=== PATIENT | female | born 1960 | race Caucasian/White ===

== ENCOUNTER 2016-08-14 16:05 | Emergency (ER) | payer OTHER ==
[~2016-08-14] VITALS: Ht 160 cm; Wt 181.8 kg
[2016-08-14 17:24] LABS: TROP-I INTERPRETATION NEGATIVE; TROPONIN-I 0.02 ng/mL (0.0-0.30)
[2016-08-14 17:27] LABS: HEMATOCRIT 47.4 % (36.0-46.0); MCH 31.7 PG (29.0-34.0); MCHC 31.2 G/DL (30.0-36.0); MCV 101.5 FL (83-99); MEAN PLAT.VOLUME 11.6 uM^3 (9.5-12.4); PLATELET COUNT 144 K/uL (156-360); RBC DIS.WIDTH-CV 15.7 % (11.8-14.6); RBC DIS.WIDTH-SD 59.8 % (39-53); RED BLOOD COUNT 4.67 M/uL (3.80-5.20); WHITE BLOOD COUNT 6.1 K/uL (4.1-10.2)
[2016-08-14 17:33] LABS: D-DIMER ELISA 0.71 mg/L FEU (< 0.57)
[2016-08-14 17:36] LABS: CHLORIDE 107 mEq/L (99-109); POTASSIUM 4.1 mEq/L (3.7-5.4); SODIUM 146 mEq/L (136-147)
[2016-08-14 17:38] LABS: GLUCOSE 100 mg/dL (70-99)
[2016-08-14 17:39] LABS: ANION GAP 12 MEQ/L (2-14)
[2016-08-14 17:42] LABS: GFR ESTIMATE (CALCULATED) 54 mL/min/; UREA NITROGEN (BUN) 15 mg/dL (9-23)
[2016-08-14 22:19] VITALS: BP 203/110
== END 2016-08-14 22:19 | disposition left against medical advice (07) ==
LOC: EME 16:05
PROVIDERS: Emergency Medicine; Nurse Practitioner Family
DX: I26.99 Other pulmonary embolism without acute cor pulmonale (principal); R09.02 Hypoxemia; I10 Essential (primary) hypertension; E11.9 Type 2 diabetes mellitus without complications
CPT/HCPCS: 71275; 80048 91; 84484; 85027; 85379; 93005; 99281; 99285

== ENCOUNTER 2016-09-09 15:17 | Inpatient (IN) | payer OTHER ==
[~2016-09-09] VITALS: Ht 160 cm; Wt 80.0 kg
[2016-09-09 15:49] LABS: HEMATOCRIT 47.5 % (36.0-46.0); MCH 30.7 PG (29.0-34.0); MCHC 30.5 G/DL (30.0-36.0); MCV 100.4 FL (83-99); MEAN PLAT.VOLUME 11.3 uM^3 (9.5-12.4); PLATELET COUNT 144 K/uL (156-360); RBC DIS.WIDTH-CV 15.3 % (11.8-14.6); RBC DIS.WIDTH-SD 56.9 % (39-53); RED BLOOD COUNT 4.73 M/uL (3.80-5.20); WHITE BLOOD COUNT 6.7 K/uL (4.1-10.2)
[2016-09-09 15:57] LABS: CHLORIDE 104 mEq/L (99-109); PTT 32.7 SEC (25-37)
[2016-09-09 15:58] LABS: POTASSIUM 4.8 mEq/L (3.7-5.4); SODIUM 143 mEq/L (136-147)
[2016-09-09 15:59] LABS: GLUCOSE 74 mg/dL (70-99)
[2016-09-09 16:00] LABS: INTER. NORMALIZED RATIO 1.4; PROTHROMBIN TIME 15.8 SEC (10.2-12.9)
[2016-09-09 16:01] LABS: ANION GAP 10 MEQ/L (2-14)
[2016-09-09 16:03] LABS: GFR ESTIMATE (CALCULATED) 38 mL/min/
[2016-09-09 16:04] LABS: UREA NITROGEN (BUN) 20 mg/dL (9-23)
[2016-09-09] MEDS ORDERED: METFORMIN HCL1000 MG PO (17:28)
[2016-09-09] MEDS ORDERED: GLIPIZIDE10 MG PO (17:28)
[2016-09-09] MEDS ORDERED: LOSARTAN POTAS100 MG PO (17:29)
[2016-09-09] MEDS ORDERED: LOSARTAN POTASS50 MG PO (17:30)
[2016-09-09] MEDS ORDERED: LASIX40 MG PO (17:31)
[2016-09-09] MEDS ORDERED: METOPROLOL SUC200 MG PO (17:31)
[2016-09-09] MEDS ORDERED: HYDROCODON-ACE1 EAC7 PO (17:32)
[2016-09-09] MEDS ORDERED: WARFARIN SODIUM5 MG PO (17:34)
[2016-09-09] MEDS ORDERED: WARFARIN SODIUM10 MG PO (17:34)
[2016-09-09 20:22] LABS: SERUM ETHYL ALCOHOL < 10 mg/dL
[2016-09-09] MEDS ORDERED: DAILY VITE1 EAC1 PO (21:01)
[2016-09-09] MEDS ORDERED: ALDACTONE25 MG PO (21:01)
[2016-09-09 23:23] LABS: POINT-OF-CARE METER ID UU14174216
[2016-09-10 00:19] VITALS: BP 188/92; BP 232/102
[2016-09-10 00:44] LABS: POINT-OF-CARE METER ID UU13113781
[2016-09-10 03:05] VITALS: BP 158/76
[2016-09-10 04:36] LABS: INTER. NORMALIZED RATIO 1.5; PROTHROMBIN TIME 16.4 SEC (10.2-12.9)
[2016-09-10 04:40] LABS: PTT 73.5 SEC (25-37)
[2016-09-10 04:56] LABS: CHLORIDE 104 mEq/L (99-109); POTASSIUM 4.5 mEq/L (3.7-5.4); SODIUM 147 mEq/L (136-147)
[2016-09-10 04:57] LABS: MAGNESIUM 2.1 mg/dL (1.3-2.7)
[2016-09-10 04:59] LABS: ANION GAP 10 MEQ/L (2-14); GLUCOSE 95 mg/dL (70-99)
[2016-09-10 05:02] LABS: GFR ESTIMATE (CALCULATED) 38 mL/min/
[2016-09-10 05:03] LABS: UREA NITROGEN (BUN) 23 mg/dL (9-23)
[2016-09-10 06:51] LABS: Estimated Average Glucose 131 mg/dL (70-123); HEMOGLOBIN A1c (GLYCOHEMOGLOB) 6.2 % HGB (Below 5.7)
[2016-09-10 07:55] VITALS: BP 124/70
[2016-09-10 08:15] LABS: POINT-OF-CARE METER ID UU14174216; POINT-OF-CARE USER ID ENVKC36
[2016-09-10 11:35] LABS: POINT-OF-CARE METER ID UU14174216; POINT-OF-CARE USER ID ENVKC36
[2016-09-10 16:32] VITALS: BP 142/88
[2016-09-10 16:51] LABS: POINT-OF-CARE METER ID UU14174216; POINT-OF-CARE USER ID ENVKC36
[2016-09-10 20:22] VITALS: BP 142/85
[2016-09-10 23:28] VITALS: BP 147/77
[2016-09-11 00:49] LABS: ADD MIUA? NO; BILIRUBIN NEGATIVE; BLOOD NEGATIVE; COLOR STRAW ((YELLOW)); GLUCOSE (STRIP) NEGATIVE; KETONES NEGATIVE; LEUKOCYTES NEGATIVE; NITRITE NEGATIVE; PROTEIN (STRIP) NEGATIVE; SPECIFIC GRAVITY 1.005 (1.000-1.030); UCUL ADDED? NO; UROBILINOGEN 0.2 MG/DL (0.2-1.0)
[2016-09-11 04:33] LABS: AMPHETAMINE NEGATIVE (500 ng/mL); BARBITURATES NEGATIVE (200 ng/mL); BENZODIAZEPINES NEGATIVE (150 ng/mL); COCAINE NEGATIVE (150 ng/mL); INTERNAL CONTROLS VALID? YES; METHADONE NEGATIVE (200 ng/mL); METHAMPHETAMINE NEGATIVE (500 ng/mL); OPIATES (MORPHINE) PRESUMPTIVE POSITIVE (100 ng/mL); OXYCODONE NEGATIVE (100 ng/mL); PHENCYCLIDINE NEGATIVE (25 ng/mL); PROPOXYPHENE NEGATIVE (300 ng/mL); THC CANNABINOIDS NEGATIVE (50 ng/mL); TRICYCLIC ANTIDEPRESSANTS NEGATIVE (300 ng/mL)
[2016-09-11 04:34] LABS: ADD MEDTOX COMMENT Y
[2016-09-11 04:58] VITALS: BP 136/73
[2016-09-11 05:10] LABS: OPIATES QUANTITATIVE VALUE 0 NG/ML
[2016-09-11 05:36] LABS: HEMATOCRIT 41.4 % (36.0-46.0); INTER. NORMALIZED RATIO 1.5; MCH 32.1 PG (29.0-34.0); MCHC 31.6 G/DL (30.0-36.0); MCV 101.5 FL (83-99); MEAN PLAT.VOLUME 11.6 uM^3 (9.5-12.4); PLATELET COUNT 129 K/uL (156-360); PROTHROMBIN TIME 16.3 SEC (10.2-12.9); RBC DIS.WIDTH-CV 15.5 % (11.8-14.6); RBC DIS.WIDTH-SD 57.5 % (39-53); RED BLOOD COUNT 4.08 M/uL (3.80-5.20); WHITE BLOOD COUNT 6.1 K/uL (4.1-10.2)
[2016-09-11 05:39] LABS: PTT 103.2 SEC (25-37)
[2016-09-11 05:59] LABS: ANION GAP 9 MEQ/L (2-14); CHLORIDE 101 MEQ/L (99-109); GFR ESTIMATE (CALCULATED) 41 mL/min/; GLUCOSE 110 mg/dL (70-99); POTASSIUM 4.2 MEQ/L (3.7-5.4); SAMPLE HEMOLYSIS CHECK 0; SAMPLE ICTERIC CHECK 0; SAMPLE LIPEMIA CHECK 0; SODIUM 144 MEQ/L (136-147); UREA NITROGEN (BUN) 22 mg/dL (9-23)
[2016-09-11 07:35] LABS: POINT-OF-CARE METER ID UU13113781
[2016-09-11 08:15] VITALS: BP 110/70
[2016-09-11 10:20] LABS: BASE EXCESS 9.6 mEq/L (-3 to +3); BICARBONATE 36.9 mEq/L (22-26); CARBOXY HGB 3.1 % (0-5); COMMENTS - BLOOD GASES A+C+; DEVICE NC; METHEMOGLOBIN 1.7 % (0-1.5); O2 FLOW 2 L/MIN; PCO2 61 mm Hg (35-45); PO2 56 mm Hg (80-100); SITE LR; TOTAL RESP RATE 18 resp/min; pH 7.39 (7.35-7.45)
[2016-09-11 11:19] LABS: POINT-OF-CARE METER ID UU13113781
[2016-09-11 11:53] VITALS: BP 100/64
[2016-09-11 16:04] VITALS: BP 118/80
[2016-09-11 16:25] LABS: POINT-OF-CARE METER ID UU14174216
[2016-09-11 20:29] VITALS: BP 168/77
[2016-09-12 00:06] VITALS: BP 138/66
[2016-09-12 04:42] VITALS: BP 137/63
[2016-09-12 07:13] VITALS: BP 138/64
[2016-09-12 07:40] LABS: POINT-OF-CARE METER ID UU14174216
[2016-09-12 08:33] LABS: PTT 45.5 SEC (25-37)
[2016-09-12 08:54] LABS: INTER. NORMALIZED RATIO 1.4; PROTHROMBIN TIME 15.6 SEC (10.2-12.9)
[2016-09-12 09:16] LABS: ANION GAP 6 MEQ/L (2-14); CHLORIDE 99 MEQ/L (99-109); GFR ESTIMATE (CALCULATED) 41 mL/min/; GLUCOSE 106 mg/dL (70-99); POTASSIUM 4.2 MEQ/L (3.7-5.4); SAMPLE HEMOLYSIS CHECK 0; SAMPLE ICTERIC CHECK 0; SAMPLE LIPEMIA CHECK 0; SODIUM 144 MEQ/L (136-147); UREA NITROGEN (BUN) 23 mg/dL (9-23)
[2016-09-12 11:16] LABS: POINT-OF-CARE METER ID UU14174216
[2016-09-12 11:29] VITALS: BP 135/63
[2016-09-12 14:16] LABS: INTER. NORMALIZED RATIO 1.5; PROTHROMBIN TIME 17.1 SEC (10.2-12.9)
[2016-09-12 14:22] LABS: PTT 75.9 SEC (25-37)
[2016-09-12 14:52] VITALS: BP 139/68
[2016-09-12 16:38] LABS: POINT-OF-CARE METER ID UU14174216
[2016-09-12 19:33] VITALS: BP 134/66
[2016-09-12 20:05] LABS: INTER. NORMALIZED RATIO 1.6; PROTHROMBIN TIME 17.8 SEC (10.2-12.9)
[2016-09-12 20:08] LABS: PTT 72.9 SEC (25-37)
[2016-09-12 21:28] LABS: POINT-OF-CARE METER ID UU14174216
[2016-09-13] VITALS (7 sets, daily range): BP systolic 130–175; BP diastolic 62–86
[2016-09-13 06:00] LABS: INTER. NORMALIZED RATIO 1.7; PROTHROMBIN TIME 18.5 SEC (10.2-12.9)
[2016-09-13 06:03] LABS: PTT 68.9 SEC (25-37)
[2016-09-13 06:22] LABS: ANION GAP 9 MEQ/L (2-14); CHLORIDE 97 MEQ/L (99-109); GFR ESTIMATE (CALCULATED) 45 mL/min/; GLUCOSE 123 mg/dL (70-99); POTASSIUM 3.5 MEQ/L (3.7-5.4); SAMPLE HEMOLYSIS CHECK 0; SAMPLE ICTERIC CHECK 0; SAMPLE LIPEMIA CHECK 0; SODIUM 144 MEQ/L (136-147); UREA NITROGEN (BUN) 26 mg/dL (9-23)
[2016-09-13 07:36] LABS: POINT-OF-CARE METER ID UU13113698
[2016-09-13 11:31] LABS: POINT-OF-CARE METER ID UU13113698
[2016-09-13 13:06] LABS: HEMATOCRIT 41.8 % (36.0-46.0); MCH 31.7 PG (29.0-34.0); MCHC 31.8 G/DL (30.0-36.0); MCV 99.5 FL (83-99); MEAN PLAT.VOLUME 11.6 uM^3 (9.5-12.4); PLATELET COUNT 149 K/uL (156-360); RBC DIS.WIDTH-CV 15.6 % (11.8-14.6); RBC DIS.WIDTH-SD 56.3 % (39-53); WHITE BLOOD COUNT 6.6 K/uL (4.1-10.2)
[2016-09-13 16:13] LABS: POINT-OF-CARE METER ID UU13113698
[2016-09-13 21:06] LABS: POINT-OF-CARE METER ID UU13113698
[2016-09-14 04:06] VITALS: BP 150/68
[2016-09-14 06:12] LABS: MCH 30.6 PG (29.0-34.0); MCV 98.8 FL (83-99); MEAN PLAT.VOLUME 11.9 uM^3 (9.5-12.4); PLATELET COUNT 145 K/uL (156-360); RBC DIS.WIDTH-CV 15.4 % (11.8-14.6); RBC DIS.WIDTH-SD 56.4 % (39-53); RED BLOOD COUNT 4.25 M/uL (3.80-5.20); WHITE BLOOD COUNT 6.7 K/uL (4.1-10.2)
[2016-09-14 06:30] LABS: INTER. NORMALIZED RATIO 1.7
[2016-09-14 06:33] LABS: PTT 77.1 SEC (25-37)
[2016-09-14 07:51] LABS: POINT-OF-CARE METER ID UU13113781
[2016-09-14 08:13] VITALS: BP 126/90
[2016-09-14 11:37] VITALS: BP 160/86
[2016-09-14 11:49] LABS: POINT-OF-CARE METER ID UU13113781
[2016-09-14 16:23] LABS: POINT-OF-CARE METER ID UU13113698
[2016-09-14 17:06] VITALS: BP 170/88
[2016-09-14 19:30] VITALS: BP 148/79
[2016-09-14 21:28] LABS: POINT-OF-CARE METER ID UU13113698
[2016-09-15 00:15] VITALS: BP 169/81
[2016-09-15 04:15] VITALS: BP 135/61
[2016-09-15 06:42] LABS: PROTHROMBIN TIME 22.4 SEC (10.2-12.9)
[2016-09-15 07:28] VITALS: BP 130/63
[2016-09-15 09:28] LABS: ANION GAP 11 MEQ/L (2-14); CHLORIDE 93 MEQ/L (99-109); GFR ESTIMATE (CALCULATED) 49 mL/min/; GLUCOSE 132 mg/dL (70-99); POTASSIUM 3.9 MEQ/L (3.7-5.4); SAMPLE HEMOLYSIS CHECK 0; SAMPLE ICTERIC CHECK 0; SAMPLE LIPEMIA CHECK 0; SODIUM 142 MEQ/L (136-147); UREA NITROGEN (BUN) 26 mg/dL (9-23)
[2016-09-15 11:41] VITALS: BP 141/70
[2016-09-15 11:52] LABS: POINT-OF-CARE METER ID UU13113803
[2016-09-15 16:49] LABS: POINT-OF-CARE METER ID UU13113803
[2016-09-15 16:56] VITALS: BP 184/89
[2016-09-15 19:30] VITALS: BP 142/75
[2016-09-16 00:10] VITALS: BP 150/80; BP 190/106
[2016-09-16 04:10] VITALS: BP 148/76
[2016-09-16 07:36] LABS: POINT-OF-CARE METER ID UU13113781
[2016-09-16 07:54] VITALS: BP 156/73
[2016-09-16 10:27] LABS: MCH 31.5 PG (29.0-34.0); MCHC 31.5 G/DL (30.0-36.0); MEAN PLAT.VOLUME 11.8 uM^3 (9.5-12.4); PLATELET COUNT 116 K/uL (156-360); RBC DIS.WIDTH-CV 15.8 % (11.8-14.6); RBC DIS.WIDTH-SD 58.1 % (39-53); WHITE BLOOD COUNT 6.1 K/uL (4.1-10.2)
[2016-09-16 10:35] LABS: INTER. NORMALIZED RATIO 2.7; PROTHROMBIN TIME 30.7 SEC (10.2-12.9)
[2016-09-16 11:15] LABS: POINT-OF-CARE METER ID UU13113781
[2016-09-16] MEDS ORDERED: Zeasorb Antifungal T TP (12:11)
[2016-09-16] MEDS ORDERED: COUMADIN1 MG PO (12:11)
[2016-09-16] MEDS ORDERED: CEPHALEXIN500 MG PO (12:11)
[2016-09-16] MEDS ORDERED: HYDROCODON-ACE1 EAC7 PO (12:11)
[2016-09-16] MEDS ORDERED: METOPROLOL SUCC50 MG PO (12:11)
[2016-09-16] MEDS ORDERED: BUMETANIDE1 MG PO (12:11)
[2016-09-16] MEDS ORDERED: K-DUR20 MEQ PO (12:11)
[2016-09-16] MEDS ORDERED: DUONEB 2.5-0.5 M3 ML PEP (12:11)
[2016-09-16] MEDS ORDERED: METOLAZONE2.5 MG PO (12:11)
[2016-09-16] MEDS ORDERED: NOVOLOG PE100 UNITS/ SC (12:11)
[2016-09-16 14:00] VITALS: BP 173/81
== END 2016-09-16 15:20 | DRG 291 ==
LOC: EME 15:17 → EDOF 19:51 → ENRESERV 19:53 → CANRESERV 20:08 → 4EAST 20:48 → EDOF 20:48 → ENRESERV 21:07 → 4EAST 22:46
PROVIDERS: Emergency Medicine; Hospitalist; Internal Medicine; Internal Medicine Pulmonary Disease; Physician Assistant Medical
PROC: 5A09357 Assistance with Respiratory Ventilation, Less than 24 Consecutive Hours, Continuous Positive Airway Pressure (ICD-10-PCS; principal; 2016-09-11)
DX: I13.0 Hypertensive heart and chronic kidney disease with heart failure and stage 1 through stage 4 chronic kidney disease, or unspecified chronic kidney disease (principal); I16.0 Hypertensive urgency; I50.33 Acute on chronic diastolic (congestive) heart failure; E66.2 Morbid (severe) obesity with alveolar hypoventilation; G47.33 Obstructive sleep apnea (adult) (pediatric); E11.22 Type 2 diabetes mellitus with diabetic chronic kidney disease; N18.3 Chronic kidney disease, stage 3 (moderate); L03.116 Cellulitis of left lower limb; I27.2 Other secondary pulmonary hypertension; I27.81 Cor pulmonale (chronic); I89.0 Lymphedema, not elsewhere classified; J45.909 Unspecified asthma, uncomplicated; F40.240 Claustrophobia; M19.90 Unspecified osteoarthritis, unspecified site; R00.1 Bradycardia, unspecified; R29.6 Repeated falls; S40.011A Contusion of right shoulder, initial encounter; S83.92XA Sprain of unspecified site of left knee, initial encounter; S81.802A Unspecified open wound, left lower leg, initial encounter; W18.30XA Fall on same level, unspecified, initial encounter; Y92.002 Bathroom of unspecified non-institutional (private) residence as the place of occurrence of the external cause; Z68.45 Body mass index [BMI] 70 or greater, adult; Z79.01 Long term (current) use of anticoagulants; Z86.711 Personal history of pulmonary embolism; Z91.19 Patient's noncompliance with other medical treatment and regimen
CPT/HCPCS: 36600; 70450; 71010; 73030; 73564; 80048; 81003; 82803; 82948; 83036; 83735; 83880; 84999; 85027; 85610; 85730; 87040; 93005; 93306; 93970; 94640; 94799; 97530 GO; 97530 GP; 99202; 99281; 99285; G0480; J0360; J1815; J1940

== ENCOUNTER 2016-10-13 19:45 | Inpatient (IN) | payer OTHER ==
[~2016-10-13] VITALS: Ht 160 cm; Wt 140.2 kg
[~2016-10-13 19:45] MED LIST: ALDACTONE25 MG PO; BUMETANIDE1 MG PO; CEPHALEXIN500 MG PO; COUMADIN1 MG PO; DAILY VITE1 EAC1 PO; DUONEB 2.5-0.5 M3 ML PEP; GLIPIZIDE10 MG PO; HYDROCODON-ACE1 EAC7 PO; K-DUR20 MEQ PO; LASIX40 MG PO; LOSARTAN POTAS100 MG PO; LOSARTAN POTASS50 MG PO; METFORMIN HCL1000 MG PO; METOLAZONE2.5 MG PO; METOPROLOL SUC200 MG PO; METOPROLOL SUCC50 MG PO; NOVOLOG PE100 UNITS/ SC; WARFARIN SODIUM10 MG PO; WARFARIN SODIUM5 MG PO; Zeasorb Antifungal T TP
[2016-10-13 20:07] LABS: POINT-OF-CARE METER ID UU13113778
[2016-10-13 20:23] LABS: HEMATOCRIT 35.1 % (36.0-46.0); MCH 31.9 PG (29.0-34.0); MCHC 34.2 G/DL (30.0-36.0); MCV 93.4 FL (83-99); RBC DIS.WIDTH-CV 14.6 % (11.8-14.6); RED BLOOD COUNT 3.76 M/uL (3.80-5.20); WHITE BLOOD COUNT 7.2 K/uL (4.1-10.2)
[2016-10-13 20:30] LABS: CHLORIDE 97 mEq/L (99-109); POTASSIUM 4.8 mEq/L (3.7-5.4); SODIUM 137 mEq/L (136-147)
[2016-10-13 20:34] LABS: ANION GAP 15 MEQ/L (2-14); GLUCOSE 80 mg/dL (70-99); TOTAL BILIRUBIN 0.6 mg/dL (0.0-1.0)
[2016-10-13 20:36] LABS: ALKALINE PHOSPHATASE 147 IU/L (3-129); GFR ESTIMATE (CALCULATED) 10 mL/min/
[2016-10-13 20:37] LABS: UREA NITROGEN (BUN) 79 mg/dL (9-23)
[2016-10-13 20:59] LABS: MEAN PLAT.VOLUME 11.1 uM^3 (9.5-12.4); PLAT.SUFFICIENCY ADEQUATE; PLATELET COUNT 203 K/uL (156-360)
[2016-10-13 21:10] LABS: POINT-OF-CARE METER ID UU13113702
[2016-10-13 21:30] LABS: ADD MIUA? YES; BILIRUBIN NEGATIVE; BLOOD NEGATIVE; COLOR YELLOW ((YELLOW)); GLUCOSE (STRIP) NEGATIVE; KETONES NEGATIVE; LEUKOCYTES NEGATIVE; NITRITE NEGATIVE; PROTEIN (STRIP) 30; SPECIFIC GRAVITY 1.014 (1.000-1.030); UROBILINOGEN 0.2 MG/DL (0.2-1.0)
[2016-10-13 21:40] LABS: MAGNESIUM 1.8 mg/dL (1.3-2.7)
[2016-10-13 21:40] LABS: BACTERIA RARE /HPF; EPITHELIAL CELLS 1+ /HPF; MUCUS TRACE /LPF; RED BLOOD CELLS 0-5 /HPF (0-5); UCUL ADDED? NO; WHITE BLOOD CELLS 0-5 /HPF (0-5)
[2016-10-13 22:45] LABS: POINT-OF-CARE METER ID UU13113702
[2016-10-13 23:27] LABS: PROTHROMBIN TIME 34.5 SEC (10.2-12.9)
[2016-10-13] MEDS ORDERED: TOPROL XL50 MG PO (23:30)
[2016-10-13] MEDS ORDERED: K-DUR20 MEQ PO (23:32)
[2016-10-13 23:35] VITALS: BP 155/82
[2016-10-13] MEDS ORDERED: COUMADIN10 MG PO (23:36)
[2016-10-13] MEDS ORDERED: ZEASORB POWDER71 GM TP (23:38)
[2016-10-13] MEDS ORDERED: AQUAPHOR OINTM105 GM TP (23:39)
[2016-10-14 00:13] VITALS: BP 133/62
[2016-10-14 01:18] LABS: POINT-OF-CARE METER ID UU14174225
[2016-10-14 06:04] LABS: HEMATOCRIT 34.7 % (36.0-46.0); MCH 31.1 PG (29.0-34.0); MCHC 32.6 G/DL (30.0-36.0); MCV 95.6 FL (83-99); MEAN PLAT.VOLUME 11.1 uM^3 (9.5-12.4); PLATELET COUNT 183 K/uL (156-360); RBC DIS.WIDTH-CV 14.7 % (11.8-14.6); RBC DIS.WIDTH-SD 51.8 % (39-53); RED BLOOD COUNT 3.63 M/uL (3.80-5.20); WHITE BLOOD COUNT 7.2 K/uL (4.1-10.2)
[2016-10-14 06:35] LABS: ALKALINE PHOSPHATASE 122 IU/L (3-129); ANION GAP 12 MEQ/L (2-14); CHLORIDE 101 MEQ/L (99-109); GFR ESTIMATE (CALCULATED) 11 mL/min/; GLUCOSE 146 mg/dL (70-99); POTASSIUM 4.6 MEQ/L (3.7-5.4); SAMPLE HEMOLYSIS CHECK 0; SAMPLE ICTERIC CHECK 0; SAMPLE LIPEMIA CHECK 0; SODIUM 140 MEQ/L (136-147); TOTAL BILIRUBIN 0.5 MG/DL (0.0-1.0); UREA NITROGEN (BUN) 73 mg/dL (9-23)
[2016-10-14 06:46] LABS: INTER. NORMALIZED RATIO 3.3; PROTHROMBIN TIME 38.3 SEC (10.2-12.9)
[2016-10-14 08:05] VITALS: BP 127/66
[2016-10-14 15:44] VITALS: BP 146/70
[2016-10-14] MEDS ORDERED: COUMADIN10 MG PO (15:45)
[2016-10-14 20:55] LABS: POINT-OF-CARE METER ID UU14174225
[2016-10-15 00:42] VITALS: BP 159/73
[2016-10-15 06:35] LABS: INTER. NORMALIZED RATIO 2.9; PROTHROMBIN TIME 33.3 SEC (10.2-12.9)
[2016-10-15 07:56] LABS: POINT-OF-CARE METER ID UU13113717
[2016-10-15 08:40] VITALS: BP 135/65
[2016-10-15 09:23] LABS: ANION GAP 10 MEQ/L (2-14); CHLORIDE 105 MEQ/L (99-109); POTASSIUM 4.6 MEQ/L (3.7-5.4); SAMPLE HEMOLYSIS CHECK 0; SAMPLE ICTERIC CHECK 0; SAMPLE LIPEMIA CHECK 0; SODIUM 140 MEQ/L (136-147)
[2016-10-15 09:28] LABS: GFR ESTIMATE (CALCULATED) 13 mL/min/; GLUCOSE 134 mg/dL (70-99); UREA NITROGEN (BUN) 69 mg/dL (9-23)
[2016-10-15 11:59] LABS: POINT-OF-CARE METER ID UU13113717
[2016-10-15 16:25] VITALS: BP 138/75
[2016-10-15 17:00] LABS: POINT-OF-CARE METER ID UU13113717
[2016-10-15 18:04] LABS: MAGNESIUM 1.8 mg/dl (1.3-2.7)
[2016-10-15 18:10] LABS: URIC ACID 12.3 mg/dL (3.1-9.2)
[2016-10-15 20:32] LABS: POINT-OF-CARE METER ID UU13113717
[2016-10-16 00:58] VITALS: BP 166/79
[2016-10-16 07:03] LABS: INTER. NORMALIZED RATIO 2.6; PROTHROMBIN TIME 29.4 SEC (10.2-12.9)
[2016-10-16 07:22] LABS: ANION GAP 11 MEQ/L (2-14); CHLORIDE 105 MEQ/L (99-109); GFR ESTIMATE (CALCULATED) 17 mL/min/; GLUCOSE 146 mg/dL (70-99); MAGNESIUM 1.9 mg/dl (1.3-2.7); POTASSIUM 4.8 MEQ/L (3.7-5.4); SAMPLE HEMOLYSIS CHECK 0; SAMPLE ICTERIC CHECK 0; SAMPLE LIPEMIA CHECK 0; SODIUM 141 MEQ/L (136-147); UREA NITROGEN (BUN) 61 mg/dL (9-23); URIC ACID 11.1 mg/dL (3.1-9.2)
[2016-10-16 07:24] VITALS: BP 162/81
[2016-10-16 21:27] LABS: POINT-OF-CARE METER ID UU13113717
[2016-10-16 23:52] VITALS: BP 154/80
[2016-10-17 06:20] LABS: ANION GAP 9 MEQ/L (2-14); CHLORIDE 106 MEQ/L (99-109); GFR ESTIMATE (CALCULATED) 20 mL/min/; GLUCOSE 135 mg/dL (70-99); POTASSIUM 4.5 MEQ/L (3.7-5.4); SAMPLE HEMOLYSIS CHECK 0; SAMPLE ICTERIC CHECK 0; SAMPLE LIPEMIA CHECK 0; SODIUM 139 MEQ/L (136-147); UREA NITROGEN (BUN) 58 mg/dL (9-23)
[2016-10-17 07:13] VITALS: BP 125/69
[2016-10-17 07:18] LABS: INTER. NORMALIZED RATIO 2.5; PROTHROMBIN TIME 28.7 SEC (10.2-12.9)
[2016-10-17] MEDS ORDERED: AMLODIPINE BESYL5 MG PO (09:16)
[2016-10-17] MEDS ORDERED: NOVOLOG PE100 UNITS/ SC (09:17)
[2016-10-17 11:14] LABS: POINT-OF-CARE METER ID UU13113717
[2016-10-17 15:25] VITALS: BP 101/52
== END 2016-10-17 16:02 | disposition home health service (06) | DRG 683 ==
LOC: EME 19:45 → EDOF 22:00 → 5SOUTH 22:00 → ENRESERV 22:02 → 5SOUTH 23:34
PROVIDERS: Emergency Medicine; Internal Medicine; Internal Medicine Cardiovascular Disease; Internal Medicine Nephrology; Nurse Practitioner Family
DX: N17.9 Acute kidney failure, unspecified (principal); I42.9 Cardiomyopathy, unspecified; E11.21 Type 2 diabetes mellitus with diabetic nephropathy; Z68.43 Body mass index [BMI] 50.0-59.9, adult; I13.0 Hypertensive heart and chronic kidney disease with heart failure and stage 1 through stage 4 chronic kidney disease, or unspecified chronic kidney disease; I50.32 Chronic diastolic (congestive) heart failure; Z86.711 Personal history of pulmonary embolism; E11.649 Type 2 diabetes mellitus with hypoglycemia without coma; Z79.01 Long term (current) use of anticoagulants; G47.33 Obstructive sleep apnea (adult) (pediatric); I89.0 Lymphedema, not elsewhere classified; I27.81 Cor pulmonale (chronic); N18.3 Chronic kidney disease, stage 3 (moderate); T50.2X5A Adverse effect of carbonic-anhydrase inhibitors, benzothiadiazides and other diuretics, initial encounter; Z79.84 Long term (current) use of oral hypoglycemic drugs; I08.3 Combined rheumatic disorders of mitral, aortic and tricuspid valves; E11.42 Type 2 diabetes mellitus with diabetic polyneuropathy; E66.2 Morbid (severe) obesity with alveolar hypoventilation; Z82.49 Family history of ischemic heart disease and other diseases of the circulatory system; Z83.3 Family history of diabetes mellitus; Z86.718 Personal history of other venous thrombosis and embolism; I25.10 Atherosclerotic heart disease of native coronary artery without angina pectoris; I27.2 Other secondary pulmonary hypertension; E11.22 Type 2 diabetes mellitus with diabetic chronic kidney disease; Z80.51 Family history of malignant neoplasm of kidney; Z80.0 Family history of malignant neoplasm of digestive organs; Z80.49 Family history of malignant neoplasm of other genital organs; Z79.899 Other long term (current) drug therapy; E86.9 Volume depletion, unspecified; E78.5 Hyperlipidemia, unspecified; K21.9 Gastro-esophageal reflux disease without esophagitis; M19.90 Unspecified osteoarthritis, unspecified site; R25.2 Cramp and spasm
CPT/HCPCS: 76770; 80048; 80053; 80069; 81003; 82948; 83036; 83735; 83880; 84100; 84550; 85025; 85027; 85610; 94799; 99202; 99281; 99285; J1815; J2060; J7030; J7042

== ENCOUNTER 2017-03-09 13:27 | Inpatient (IN) | payer OTHER ==
[~2017-03-09] VITALS: Ht 160 cm; Wt 142.0 kg
[~2017-03-09 13:27] MED LIST changes: +AMLODIPINE BESYL5 MG PO; +AQUAPHOR OINTM105 GM TP; +COUMADIN10 MG PO; +TOPROL XL50 MG PO; +ZEASORB POWDER71 GM TP
[2017-03-09 14:53] LABS: HEMATOCRIT 43.1 % (36.0-46.0); HEMOGLOBIN 13.4 G/DL (11.9-15.5); MCH 28.8 PG (29.0-34.0); MCHC 31.1 G/DL (30.0-36.0); MCV 92.5 FL (83-99); PLATELET COUNT 211 K/uL (156-360); RBC DIS.WIDTH-CV 16.4 % (11.8-14.6); RBC DIS.WIDTH-SD 55.7 % (39-53); RED BLOOD COUNT 4.66 M/uL (3.80-5.20); WHITE BLOOD COUNT 6.2 K/uL (4.1-10.2)
[2017-03-09 15:04] LABS: CHLORIDE 102 mEq/L (99-109); SODIUM 141 mEq/L (136-147)
[2017-03-09 15:06] LABS: GLUCOSE 154 mg/dL (70-99)
[2017-03-09 15:10] LABS: CREATININE 1.2 mg/dL (0.6-1.3); GFR ESTIMATE (CALCULATED) 49 mL/min/; UREA NITROGEN (BUN) 23 mg/dL (9-23)
[2017-03-09 15:18] LABS: TROP-I INTERPRETATION NEGATIVE; TROPONIN-I 0.02 ng/mL (0.0-0.30)
[2017-03-09] MEDS ORDERED: WARFARIN SODIUM10 MG PO (16:27)
[2017-03-09] MEDS ORDERED: HYDROCODON-ACE1 EAC7 PO (16:28)
[2017-03-09] MEDS ORDERED: STOOL SOFTENER100 MG PO (16:28)
[2017-03-09] MEDS ORDERED: BUMETANIDE1 MG PO (16:29)
[2017-03-09] MEDS ORDERED: COZAAR50 MG PO (16:29)
[2017-03-09] MEDS ORDERED: BIOTIN2500 MCG PO (16:30)
[2017-03-09] MEDS ORDERED: METOPROLOL SUCC50 MG PO (16:30)
[2017-03-09] MEDS ORDERED: MAGNESIUM400 M1 PO (16:30)
[2017-03-09 16:55] LABS: D-DIMER ELISA < 150.00 ng/mLDDU (<230)
[2017-03-09 16:59] LABS: PTT 32.3 SEC (25-37)
[2017-03-09 17:39] LABS: CREATINE KINASE 35 IU/L (1-294)
[2017-03-09 19:01] LABS: C-REACTIVE PROTEIN 12.8 MG/L (0-10)
[2017-03-09 23:40] VITALS: BP 186/87
[2017-03-10 03:54] VITALS: BP 193/88
[2017-03-10 06:58] LABS: HEMATOCRIT 42.1 % (36.0-46.0); MCH 28.3 PG (29.0-34.0); MCHC 30.9 G/DL (30.0-36.0); MCV 91.5 FL (83-99); PLATELET COUNT 226 K/uL (156-360); RBC DIS.WIDTH-CV 16.3 % (11.8-14.6); RBC DIS.WIDTH-SD 54.6 % (39-53); WHITE BLOOD COUNT 7.3 K/uL (4.1-10.2)
[2017-03-10 07:15] LABS: CHLORIDE 94 MEQ/L (99-109); CREATININE 1.2 MG/DL (0.6-1.3); GFR ESTIMATE (CALCULATED) 49 mL/min/; GLUCOSE 189 mg/dL (70-99); POTASSIUM 3.8 MEQ/L (3.7-5.4); SODIUM 141 MEQ/L (136-147); UREA NITROGEN (BUN) 23 mg/dL (9-23)
[2017-03-10 07:55] VITALS: BP 147/84
[2017-03-10 12:33] LABS: HEMOGLOBIN A1c (GLYCOHEMOGLOB) 7.6 % (Below 5.7)
[2017-03-10 16:31] VITALS: BP 135/69
[2017-03-10 23:44] VITALS: BP 131/67
[2017-03-11 06:36] LABS: CHLORIDE 95 MEQ/L (99-109); GFR ESTIMATE (CALCULATED) 33 mL/min/; GLUCOSE 181 mg/dL (70-99); POTASSIUM 3.7 MEQ/L (3.7-5.4); SODIUM 140 MEQ/L (136-147)
[2017-03-11 06:37] LABS: CREATININE 1.7 MG/DL (0.6-1.3); UREA NITROGEN (BUN) 36 mg/dL (9-23)
[2017-03-11 06:51] LABS: INTER. NORMALIZED RATIO 2.2
[2017-03-11 07:27] VITALS: BP 130/70
[2017-03-11 15:08] VITALS: BP 103/58
[2017-03-11 15:11] LABS: PHOSPHORUS 6.1 mg/dL (2.5-4.9)
[2017-03-11 23:30] VITALS: BP 100/60
[2017-03-12 05:27] LABS: INTER. NORMALIZED RATIO 2.6
[2017-03-12 05:59] LABS: CHLORIDE 94 MEQ/L (99-109); CREATININE 1.9 MG/DL (0.6-1.3); GFR ESTIMATE (CALCULATED) 29 mL/min/; GLUCOSE 170 mg/dL (70-99); POTASSIUM 3.8 MEQ/L (3.7-5.4); SODIUM 138 MEQ/L (136-147); UREA NITROGEN (BUN) 49 mg/dL (9-23)
[2017-03-12 07:30] VITALS: BP 141/75
[2017-03-12] MEDS ORDERED: CARVEDILOL6.25 MG PO (13:13)
[2017-03-12] MEDS ORDERED: COUMADIN1 MG PO (13:16)
[2017-03-12] MEDS ORDERED: HYDROCODON-ACE1 EAC7 PO (13:16)
[2017-03-12] MEDS ORDERED: DUONEB 2.5-0.5 M3 ML AEROSOL (13:32)
== END 2017-03-12 15:42 | disposition home health service (06) | DRG 314 ==
LOC: EME 13:27 → EDOF 17:44 → 5SOUTH 17:44 → ENRESERV 17:46 → 5SOUTH 22:47
PROVIDERS: Internal Medicine; Internal Medicine Nephrology; Physician Assistant Medical
DX: I27.81 Cor pulmonale (chronic) (principal); N17.9 Acute kidney failure, unspecified; I13.0 Hypertensive heart and chronic kidney disease with heart failure and stage 1 through stage 4 chronic kidney disease, or unspecified chronic kidney disease; I50.33 Acute on chronic diastolic (congestive) heart failure; N18.2 Chronic kidney disease, stage 2 (mild); R09.02 Hypoxemia; E11.21 Type 2 diabetes mellitus with diabetic nephropathy; E11.22 Type 2 diabetes mellitus with diabetic chronic kidney disease; E66.2 Morbid (severe) obesity with alveolar hypoventilation; Z68.43 Body mass index [BMI] 50.0-59.9, adult; E78.5 Hyperlipidemia, unspecified; G89.29 Other chronic pain; I89.0 Lymphedema, not elsewhere classified; I07.1 Rheumatic tricuspid insufficiency; I27.20 Pulmonary hypertension, unspecified; I42.9 Cardiomyopathy, unspecified; K21.9 Gastro-esophageal reflux disease without esophagitis; M17.0 Bilateral primary osteoarthritis of knee; Z79.01 Long term (current) use of anticoagulants; Z80.0 Family history of malignant neoplasm of digestive organs; Z80.49 Family history of malignant neoplasm of other genital organs; Z80.51 Family history of malignant neoplasm of kidney; Z82.49 Family history of ischemic heart disease and other diseases of the circulatory system; Z83.3 Family history of diabetes mellitus; Z86.711 Personal history of pulmonary embolism; D64.9 Anemia, unspecified; E55.9 Vitamin D deficiency, unspecified; F41.9 Anxiety disorder, unspecified; L71.9 Rosacea, unspecified; M79.89 Other specified soft tissue disorders; M79.1 Myalgia
CPT/HCPCS: 71046; 73700; 80048; 82040; 82550; 82570; 82948; 83036; 83605; 83880; 84100; 84156; 84484; 85027; 85379; 85610; 85651; 85730; 86140; 87040; 93005; 93970; 94760; 94799; 99202; 99281; 99285; J0690; J1815; J1940; J3010

== ENCOUNTER 2017-03-28 14:53 | Emergency (ER) | payer OTHER ==
[~2017-03-28] VITALS: Ht 160 cm; Wt 138.6 kg
[~2017-03-28 14:53] MED LIST changes: +BIOTIN2500 MCG PO; +CARVEDILOL6.25 MG PO; +COZAAR50 MG PO; +DUONEB 2.5-0.5 M3 ML AEROSOL; +MAGNESIUM400 M1 PO; +STOOL SOFTENER100 MG PO
[2017-03-28 15:48] LABS: HEMOGLOBIN 13.6 G/DL (11.9-15.5); MCH 29.6 PG (29.0-34.0); MCHC 32.4 G/DL (30.0-36.0); MCV 91.5 FL (83-99); PLATELET COUNT 219 K/uL (156-360); RBC DIS.WIDTH-CV 16.4 % (11.8-14.6); RED BLOOD COUNT 4.59 M/uL (3.80-5.20); WHITE BLOOD COUNT 6.4 K/uL (4.1-10.2)
[2017-03-28 16:00] LABS: CHLORIDE 100 mEq/L (99-109); POTASSIUM 4.1 mEq/L (3.7-5.4); SODIUM 142 mEq/L (136-147)
[2017-03-28 16:01] LABS: GLUCOSE 137 mg/dL (70-99)
[2017-03-28 16:05] LABS: CREATININE 1.2 mg/dL (0.6-1.3); GFR ESTIMATE (CALCULATED) 49 mL/min/
[2017-03-28 16:06] LABS: UREA NITROGEN (BUN) 35 mg/dL (9-23)
[2017-03-28] MEDS ORDERED: PERCOCET 10/1 TABLET PO (17:42)
[2017-03-28 18:01] VITALS: BP 155/75
== END 2017-03-28 18:22 | disposition home or self-care (01) ==
LOC: EME 14:53
DX: L97.219 Non-pressure chronic ulcer of right calf with unspecified severity (principal); I89.0 Lymphedema, not elsewhere classified; I11.0 Hypertensive heart disease with heart failure; I50.9 Heart failure, unspecified; E11.9 Type 2 diabetes mellitus without complications; E66.01 Morbid (severe) obesity due to excess calories
CPT/HCPCS: 80048; 85027; 99281; 99284

== ENCOUNTER 2017-06-09 20:17 | Inpatient (IN) | payer OTHER ==
[~2017-06-09] VITALS: Ht 160 cm; Wt 142.3 kg
[~2017-06-09 20:17] MED LIST changes: +PERCOCET 10/1 TABLET PO
[2017-06-09 21:02] LABS: BASOPHIL (%) 0.3 % (0-1); EOSINOPHIL (%) 1.6 % (0-5); EOSINOPHIL COUNT 0.2 K/uL (0-0.3); HEMOGLOBIN 14.2 G/DL (11.9-15.5); IMMATURE GRANULOCYTE (%) 0.4 % (0.0-0.7); LYMPHOCYTE (%) 7.2 % (15-42); LYMPHOCYTE COUNT 0.7 K/uL (1.0-2.8); MCH 30.9 PG (29.0-34.0); MCHC 33.8 G/DL (30.0-36.0); MCV 91.5 FL (83-99); MONOCYTE (%) 8.9 % (3-12); MONOCYTE COUNT 0.9 K/uL (0-0.8); NEUTROPHIL (%) 81.6 % (45-76); NEUTROPHIL COUNT 8.3 K/uL (1.8-6.4); PLATELET COUNT 203 K/uL (156-360); RBC DIS.WIDTH-CV 14.7 % (11.8-14.6); RBC DIS.WIDTH-SD 49.6 % (39-53); RED BLOOD COUNT 4.59 M/uL (3.80-5.20); WHITE BLOOD COUNT 10.2 K/uL (4.1-10.2)
[2017-06-09 21:27] LABS: CHLORIDE 105 mEq/L (99-109); POTASSIUM 3.7 mEq/L (3.7-5.4); SODIUM 145 mEq/L (136-147)
[2017-06-09 21:29] LABS: GLUCOSE 148 mg/dL (70-99)
[2017-06-09 21:33] LABS: CREATININE 1.6 mg/dL (0.6-1.3); GFR ESTIMATE (CALCULATED) 35 mL/min/
[2017-06-09 21:34] LABS: TROP-I INTERPRETATION NEGATIVE; TROPONIN-I 0.03 ng/mL (0.0-0.30); UREA NITROGEN (BUN) 40 mg/dL (9-23)
[2017-06-09 21:36] LABS: CARBON DIOXIDE (BICARBONATE) 27.9 MEQ/L (20-31)
[2017-06-09 23:21] LABS: APPEARANCE SL.HAZY ((CLEAR)); BILIRUBIN NEGATIVE; BLOOD NEGATIVE; COLOR YELLOW ((YELLOW)); GLUCOSE (STRIP) NEGATIVE; KETONES 20; LEUKOCYTES NEGATIVE; NITRITE NEGATIVE; PROTEIN (STRIP) 100; SPECIFIC GRAVITY 1.021 (1.000-1.030)
[2017-06-09 23:34] LABS: BACTERIA NONE SEEN /HPF; EPITHELIAL CELLS NONE SEEN /HPF; MUCUS 1+ /LPF; RED BLOOD CELLS 0-5 /HPF (0-5); UCUL ADDED? NO; WHITE BLOOD CELLS 0-5 /HPF (0-5)
[2017-06-10] VITALS (21 sets, daily range): BP systolic 130–192; BP diastolic 69–89
[2017-06-10 02:03] LABS: PTT 40.3 SEC (25-37)
[2017-06-10 02:07] LABS: INTER. NORMALIZED RATIO 5.3
[2017-06-10 06:13] LABS: PTT 30.3 SEC (25-37)
[2017-06-10 06:23] LABS: INTER. NORMALIZED RATIO 1.3
[2017-06-10 06:48] LABS: CHLORIDE 108 mEq/L (99-109); POTASSIUM 3.6 mEq/L (3.7-5.4); SODIUM 147 mEq/L (136-147)
[2017-06-10 06:50] LABS: GLUCOSE 170 mg/dL (70-99)
[2017-06-10 06:54] LABS: CREATININE 1.3 mg/dL (0.6-1.3); GFR ESTIMATE (CALCULATED) 45 mL/min/; UREA NITROGEN (BUN) 36 mg/dL (9-23)
[2017-06-10] MEDS ORDERED: NORVASC5 MG PO (22:56)
[2017-06-11] VITALS (13 sets, daily range): BP systolic 120–185; BP diastolic 71–86
[2017-06-11] MEDS ORDERED: COREG6.25 M1 PO (06:37)
[2017-06-11] MEDS ORDERED: APRESOLINE50 MG PO (06:37)
[2017-06-11] MEDS ORDERED: COUMADIN7.5 MG PO (06:38)
[2017-06-11] MEDS ORDERED: COLACE100 MG PO (07:05)
[2017-06-11] MEDS ORDERED: ESSENTIAL WOMA1 EAC1 PO (07:07)
[2017-06-11] MEDS ORDERED: BUMEX2 MG PO ×2 (07:10→07:14)
[2017-06-11] MEDS ORDERED: METOLAZONE2.5 MG PO (07:14)
[2017-06-11] MEDS ORDERED: LORTAB 5-325 M1 EACH PO (07:15)
[2017-06-11] MEDS ORDERED: NOVOLOG PE100 UNITS/ SC (07:16)
[2017-06-11] MEDS ORDERED: BIOTIN2500 MCG PO (07:16)
[2017-06-11] MEDS ORDERED: PENTOXIFYLLINE400 MG PO (07:17)
[2017-06-11] MEDS ORDERED: MAGNESIUM400 M1 PO (07:17)
[2017-06-11] MEDS ORDERED: GABAPENTIN300 MG PO (07:17)
[2017-06-11 09:49] LABS: BASOPHIL (%) 0.1 % (0-1); EOSINOPHIL (%) 0.1 % (0-5); HEMATOCRIT 35.5 % (36.0-46.0); HEMOGLOBIN 11.5 G/DL (11.9-15.5); IMMATURE GRANULOCYTE (%) 0.4 % (0.0-0.7); LYMPHOCYTE (%) 8.4 % (15-42); LYMPHOCYTE COUNT 0.9 K/uL (1.0-2.8); MCH 30.5 PG (29.0-34.0); MCHC 32.4 G/DL (30.0-36.0); MCV 94.2 FL (83-99); MONOCYTE (%) 7.4 % (3-12); MONOCYTE COUNT 0.8 K/uL (0-0.8); NEUTROPHIL (%) 83.6 % (45-76); PLATELET COUNT 182 K/uL (156-360); RBC DIS.WIDTH-CV 14.4 % (11.8-14.6); RBC DIS.WIDTH-SD 50.1 % (39-53); RED BLOOD COUNT 3.77 M/uL (3.80-5.20); WHITE BLOOD COUNT 10.8 K/uL (4.1-10.2)
[2017-06-11 09:51] LABS: ALBUMIN 3.6 G/DL (3.2-4.8); ALKALINE PHOSPHATASE 87 IU/L (3-129); ALT (GPT) 9 IU/L (3-49); AST (GOT) 12 IU/L (2-34); CHLORIDE 108 MEQ/L (99-109); CREATININE 1.1 MG/DL (0.6-1.3); GFR ESTIMATE (CALCULATED) 54 mL/min/; GLUCOSE 159 mg/dL (70-99); POTASSIUM 4.3 MEQ/L (3.7-5.4); SODIUM 141 MEQ/L (136-147); TOTAL BILIRUBIN 0.8 MG/DL (0.0-1.0); TOTAL PROTEIN 6.2 G/DL (6.4-8.3); UREA NITROGEN (BUN) 37 mg/dL (9-23)
[2017-06-11 14:05] LABS: FACTOR Xa INHIBITION (LMWH) 0.23 IU/mL
[2017-06-12 04:01] VITALS: BP 150/75
[2017-06-12 08:01] VITALS: BP 150/76
[2017-06-12 12:50] VITALS: BP 130/70
[2017-06-12] MEDS ORDERED: HYDROCODON-ACE1 EAC7 PO (13:34)
[2017-06-12] MEDS ORDERED: LOVENOX150 MG/1 M SC (13:34)
[2017-06-12 17:16] VITALS: BP 140/57
[2017-06-12 19:41] VITALS: BP 130/60
[2017-06-13 07:38] VITALS: BP 146/78
== END 2017-06-13 18:06 | disposition home or self-care (01) | DRG 26 ==
LOC: EME → EDBD 20:17 → EME 20:17 → SDC 06-10 07:33 → EME 06-10 07:33 → 2SOUTH 06-10 09:12 → CANRESERV 06-10 09:43 → ENRESERV 06-10 09:43 → 4WEST 06-10 12:13 → ENRESERV 06-11 08:28 → 3EAST 06-11 12:25
PROVIDERS: Emergency Medicine; Neurological Surgery; Physician Assistant Medical; Surgery
PROC: 5A1935Z Respiratory Ventilation, Less than 24 Consecutive Hours (ICD-10-PCS; principal; 2017-06-10)
PROC: 0BH17EZ Insertion of Endotracheal Airway into Trachea, Via Natural or Artificial Opening (ICD-10-PCS; 2017-06-10)
PROC: 00C40ZZ Extirpation of Matter from Intracranial Subdural Space, Open Approach (ICD-10-PCS; 2017-06-10)
PROC: 0HBLXZZ Excision of Left Lower Leg Skin, External Approach (ICD-10-PCS; 2017-06-11)
PROC: 0HBKXZZ Excision of Right Lower Leg Skin, External Approach (ICD-10-PCS; 2017-06-11)
DX: I62.01 Nontraumatic acute subdural hemorrhage (principal); F05 Delirium due to known physiological condition; Z68.43 Body mass index [BMI] 50.0-59.9, adult; L97.821 Non-pressure chronic ulcer of other part of left lower leg limited to breakdown of skin; L97.811 Non-pressure chronic ulcer of other part of right lower leg limited to breakdown of skin; R32 Unspecified urinary incontinence; K21.9 Gastro-esophageal reflux disease without esophagitis; J44.9 Chronic obstructive pulmonary disease, unspecified; E11.622 Type 2 diabetes mellitus with other skin ulcer; E66.01 Morbid (severe) obesity due to excess calories; I89.0 Lymphedema, not elsewhere classified; E78.5 Hyperlipidemia, unspecified; G47.33 Obstructive sleep apnea (adult) (pediatric); I11.0 Hypertensive heart disease with heart failure; I50.9 Heart failure, unspecified; G93.89 Other specified disorders of brain; I27.29 Other secondary pulmonary hypertension; M17.0 Bilateral primary osteoarthritis of knee; R79.1 Abnormal coagulation profile; T45.515A Adverse effect of anticoagulants, initial encounter; L89.892 Pressure ulcer of other site, stage 2; I62.03 Nontraumatic chronic subdural hemorrhage; I44.0 Atrioventricular block, first degree; Z91.19 Patient's noncompliance with other medical treatment and regimen; Z99.81 Dependence on supplemental oxygen; Z91.14 Patient's other noncompliance with medication regimen; Z79.01 Long term (current) use of anticoagulants; Z86.718 Personal history of other venous thrombosis and embolism; Z86.711 Personal history of pulmonary embolism; Z90.49 Acquired absence of other specified parts of digestive tract; Z82.49 Family history of ischemic heart disease and other diseases of the circulatory system; Z80.3 Family history of malignant neoplasm of breast
CPT/HCPCS: 70450; 71045; 71046; 80048; 80053; 81003; 82803; 82948; 83605; 83880; 83930; 84484; 85025; 85520; 85610; 85730; 87070; 87205; 87502; 87641; 93005; 93970; 94002; 94799; 99281; 99285; C9132; J0131; J0330; J0690; J1100; J1170; J1650; J1815; J1953; J2405; J2704; J2710; J3010; J3430; J3480; J7050; J7643; S0028

== ENCOUNTER 2017-06-15 14:48 | Emergency (ER) | payer OTHER ==
[~2017-06-15] VITALS: Ht 160 cm; Wt 142.7 kg
[~2017-06-15 14:48] MED LIST changes: +APRESOLINE50 MG PO; +BUMEX2 MG PO; +COLACE100 MG PO; +COREG6.25 M1 PO; +COUMADIN7.5 MG PO; +ESSENTIAL WOMA1 EAC1 PO; +GABAPENTIN300 MG PO; +LORTAB 5-325 M1 EACH PO; +LOVENOX150 MG/1 M SC; +NORVASC5 MG PO; +PENTOXIFYLLINE400 MG PO
[2017-06-15 15:47] LABS: HEMATOCRIT 37.8 % (36.0-46.0); HEMOGLOBIN 13.1 G/DL (11.9-15.5); MCH 31.5 PG (29.0-34.0); MCHC 34.7 G/DL (30.0-36.0); MCV 90.9 FL (83-99); PLATELET COUNT 182 K/uL (156-360); RBC DIS.WIDTH-CV 13.8 % (11.8-14.6); RBC DIS.WIDTH-SD 45.9 % (39-53); RED BLOOD COUNT 4.16 M/uL (3.80-5.20); WHITE BLOOD COUNT 17.2 K/uL (4.1-10.2)
[2017-06-15 15:57] LABS: INTER. NORMALIZED RATIO 1.3
[2017-06-15 15:58] LABS: CHLORIDE 102 mEq/L (99-109); SODIUM 141 mEq/L (136-147)
[2017-06-15 15:59] LABS: GLUCOSE 183 mg/dL (70-99)
[2017-06-15 16:00] LABS: PTT 33.5 SEC (25-37)
[2017-06-15 16:03] LABS: CREATININE 0.9 mg/dL (0.6-1.3); GFR ESTIMATE (CALCULATED) > 59 mL/min/
[2017-06-15 16:10] LABS: TROP-I INTERPRETATION NEGATIVE; TROPONIN-I 0.01 ng/mL (0.0-0.30)
[2017-06-15 16:10] LABS: POTASSIUM 3.4 mEq/L (3.7-5.4); UREA NITROGEN (BUN) 15 mg/dL (9-23)
[2017-06-15 22:02] VITALS: BP 00/00
== END 2017-06-15 22:29 ==
LOC: EME 14:48
PROVIDERS: Emergency Medicine Emergency Medical Services
DX: I62.01 Nontraumatic acute subdural hemorrhage (principal); J44.9 Chronic obstructive pulmonary disease, unspecified; I11.0 Hypertensive heart disease with heart failure; I50.9 Heart failure, unspecified; F32.9 Major depressive disorder, single episode, unspecified; Z86.711 Personal history of pulmonary embolism; Z86.718 Personal history of other venous thrombosis and embolism
CPT/HCPCS: 70450; 80048; 81003; 83880; 84484; 85027; 85610; 85730; 99281; 99285; J2720; J7050